=== PATIENT | female | born 1980 | race African-American/Black ===

== ENCOUNTER 2016-11-18 10:45 | Inpatient (IN) | payer MEDICARE, MEDICAID ==
[~2016-11-18] VITALS: Ht 157.5 cm; Wt 147.0 kg
[~2016-11-18 10:45] MED LIST: ACET-2178 PO; AMLO10TA4 PO; LISI-604 PO
[2016-11-18] MEDS ORDERED: CLONIDINE 0.1MG TABLET PO ONE ×2 (16:30→18:45)
[2016-11-18] MEDS ORDERED: HYDRALAZINE 20MG/ML VIAL IV ONE (20:15)
[2016-11-18 20:58] LABS: EOSINOPHILS % 0.9 % (0.0-5.0); HEMATOCRIT. 44.4 % (36.0-48.0); HEMOGLOBIN. 14.7 g/dL (12.0-16.0); LYMPHOCYTES % 25.1 % (20.0-50.0); MEAN CORPUSCULAR HEMOGLOBIN 30.4 pg (28.0-32.0); MEAN CORPUSCULAR VOLUME 91.5 fL (81.0-99.0); MEAN PLATELET VOLUME 9.1 fl (7.4-10.4); PLATELET 280 x1000/uL (130-400); RED BLOOD CELL COUNT 4.85 mill/uL (4.2-5.4); RED CELL DISTRIBUTION WIDTH 14.6 % (11.6-14.6)
[2016-11-18 21:02] LABS: INR 1.1; PROTHROMBIN TIME 11.1 sec (9.4-11.6)
[2016-11-18 21:10] LABS: CARBON DIOXIDE 26 mEq/L (21-32); CHLORIDE 105 mEq/L (98-107)
[2016-11-18 21:20] LABS: HCG SCREEN NEGATIVE
[2016-11-19] VITALS (12 sets, daily range): BP systolic 112–183; BP diastolic 63–112
[2016-11-19] MEDS ORDERED: ACETAMINOPHEN 325MG TABLET PO PRN (01:00)
[2016-11-19] MEDS ORDERED: ZOLPIDEM TARTRATE 5MG TABLET PO PRN (01:00)
[2016-11-19] MEDS ORDERED: MAGNESIUM/ALUMINUM HYDROXIDE/SIMETHICONE 30ML UDC PO PRN (01:00)
[2016-11-19] MEDS: METOPROLOL TARTRATE 50MG TABLET PO SCH ×3 (01:33→14:24)
[2016-11-19] MEDS: AMLODIPINE 5MG TABLET PO SCH ×3 (01:34→14:25)
[2016-11-19] MEDS: LOSARTAN POTASSIUM 100 MG TABLET PO SCH ×3 (01:34→14:25)
[2016-11-19] MEDS: CLONIDINE 0.1MG TABLET PO PRN ×2 (05:37→17:05)
[2016-11-19 06:23] LABS: CARBON DIOXIDE 28 mEq/L (21-32); CHLORIDE 105 mEq/L (98-107); HDL CHOLESTEROL 34 mg/dL (40-59); LDL CHOLESTEROL 96 mg/dL (5-100)
[2016-11-19 08:35] LABS: TROPONIN I < 0.02 ng/mL (0.00-0.04)
[2016-11-19] MEDS ORDERED: ENOXAPARIN 40MG/0.4ML SYR SUBCUT SCH (09:00)
[2016-11-19] MEDS: ENOXAPARIN 40MG/0.4ML SYR SUBCUT SCH ×2 (09:33→20:58)
[2016-11-19] MEDS ORDERED: CLONIDINE 0.1MG TABLET PO PRN (19:15)
[2016-11-19] MEDS ORDERED: AMLODIPINE 5MG TABLET PO SCH (20:00)
[2016-11-19] MEDS ORDERED: METOPROLOL TARTRATE 50MG TABLET PO SCH (20:00)
[2016-11-20] VITALS: BP 128/68
[2016-11-20 04:00] VITALS: BP 111/68
[2016-11-20 08:00] VITALS: BP 152/129
[2016-11-20] MEDS: ENOXAPARIN 40MG/0.4ML SYR SUBCUT SCH (08:27)
[2016-11-20] MEDS ORDERED: METOPROLOL TARTRATE 25MG TABLET PO SCH (09:00)
[2016-11-20] MEDS ORDERED: LOSARTAN POTASSIUM 100 MG TABLET PO SCH (09:00)
[2016-11-20] MEDS ORDERED: AMLODIPINE 5MG TABLET PO SCH (09:00)
[2016-11-20 10:00] VITALS: BP 136/84
[2016-11-20 12:00] VITALS: BP 136/84
[2016-11-20 13:16] VITALS: BP 136/84
== END 2016-11-20 14:31 | disposition home or self-care (01) | DRG 305 ==
LOC: ER 14:09 → 7WST 21:43 → ENRESERV 22:14
PROVIDERS: ADMIT Internal Medicine; ATTEND Internal Medicine
DX: I10 Essential (primary) hypertension (principal); Z68.43 Body mass index [BMI] 50.0-59.9, adult; E66.01 Morbid (severe) obesity due to excess calories; E78.5 Hyperlipidemia, unspecified; F17.200 Nicotine dependence, unspecified, uncomplicated; Z79.899 Other long term (current) drug therapy; Z71.6 Tobacco abuse counseling; M19.90 Unspecified osteoarthritis, unspecified site
CPT/HCPCS: 36415; 80048; 80053; 80061; 84484; 84703; 85025; 85610; 93005; 93880; 93923; 96374; 99285; J0360; J1650

== ENCOUNTER 2018-03-03 22:30 | Emergency (ER) | payer MEDICARE, MEDICAID ==
[~2018-03-03] VITALS: Ht 157.5 cm; Wt 141.0 kg
[2018-03-04] MEDS ORDERED: ACETAMINOPHEN 325MG TABLET PO STA (02:11)
[2018-03-04 02:46] LABS: BASOPHILS % 0.6 % (0.0-2.0); EOSINOPHILS % 1.7 % (0.0-5.0); HEMATOCRIT. 47.1 % (36.0-48.0); HEMOGLOBIN. 15.4 g/dL (12.0-16.0); LYMPHOCYTES % 19.5 % (20.0-50.0); MEAN CORPUSCULAR HEMOGLOBIN 30.4 pg (28.0-32.0); MEAN PLATELET VOLUME 9.1 fl (7.4-10.4); MONOCYTES % 7.9 % (2.0-8.0); NEUTROPHILS % 70.3 % (40.0-76.0); PLATELET 314 x1000/uL (130-400); RED BLOOD CELL COUNT 5.06 mill/uL (4.2-5.4); RED CELL DISTRIBUTION WIDTH 14.3 % (11.6-14.6)
[2018-03-04 02:53] LABS: CHLORIDE 107 mEq/L (98-107)
[2018-03-04] MEDS ORDERED: METOPROLOL TARTRATE 50MG TABLET PO ONE (03:15)
[2018-03-04] MEDS ORDERED: HYDRALAZINE 20MG/ML VIAL IV ONE (04:45)
[2018-03-04 04:46] LABS: CLARITY URINE CLEAR (CLEAR); COLOR URINE YELLOW (YELLOW); KETONES URINE NEGATIVE (NEGATIVE); LEUKOCYTE ESTERASE URINE TRACE (NEGATIVE); NITRITE URINE NEGATIVE (NEGATIVE); OCCULT BLOOD URINE NEGATIVE (NEGATIVE); PH URINE 6.5 (4.5-8.0); PROTEIN URINE NEGATIVE (NEGATIVE); SPECIFIC GRAVITY URINE 1.023 (1.005-1.030)
[2018-03-04] MEDS ORDERED: NITROFURANTOIN 100MG M/M CAPSULE PO ONE (05:30)
[2018-03-04] MEDS ORDERED: ALBUTEROL (0.083%) 2.5MG/3ML NEB HHN ONE (06:00)
[2018-03-04 07:16] VITALS: BP 165/89
== END 2018-03-04 09:53 | disposition home or self-care (01) ==
LOC: ER 03-04 09:45
DX: J06.9 Acute upper respiratory infection, unspecified (principal); N39.0 Urinary tract infection, site not specified; I10 Essential (primary) hypertension; F12.90 Cannabis use, unspecified, uncomplicated; F17.210 Nicotine dependence, cigarettes, uncomplicated
CPT/HCPCS: 36415; 71045; 80053; 81003; 81025; 83880; 84484; 85025; 93005; 94640; 96374; 99284; J0360; J7611

== ENCOUNTER 2018-07-05 15:05 | Emergency (ER) | payer MEDICARE, MEDICAID ==
[~2018-07-05] VITALS: Ht 157.5 cm; Wt 145.0 kg
[2018-07-05] MEDS ORDERED: FUROSEMIDE 20MG/2ML VIAL IVP ONE (15:30)
[2018-07-05 16:29] LABS: BASOPHILS % 0.8 % (0.0-2.0); EOSINOPHILS % 1.2 % (0.0-5.0); HEMATOCRIT. 47.5 % (36.0-48.0); HEMOGLOBIN. 15.6 g/dL (12.0-16.0); LYMPHOCYTES % 16.8 % (20.0-50.0); MEAN CORPUSCULAR HEMOGLOBIN 29.9 pg (28.0-32.0); MEAN CORPUSCULAR VOLUME 91.4 fL (81.0-99.0); MEAN PLATELET VOLUME 9.1 fl (7.4-10.4); MONOCYTES % 6.9 % (2.0-8.0); NEUTROPHILS % 74.3 % (40.0-76.0); PLATELET 289 x1000/uL (130-400); RED CELL DISTRIBUTION WIDTH 15.1 % (11.6-14.6)
[2018-07-05 16:36] LABS: CHLORIDE 106 mEq/L (98-107)
[2018-07-05 16:38] LABS: PARTIAL THROMBOPLASTIN TIME 29.4 sec (23.4-31.0); PROTHROMBIN TIME 10.6 sec (9.6-11.0)
[2018-07-05 16:43] LABS: ETHANOL BLOOD < 10 mg/dL
[2018-07-05 16:46] LABS: CREATINE KINASE 183 IU/L (26-192); HCG SCREEN NEGATIVE
[2018-07-05 16:49] LABS: CREATINE KINASE MB FRACTION 1.6 ng/mL (0.5-3.6)
[2018-07-05 17:06] LABS: *AMPHETAMINES SCREEN URINE NEGATIVE (NEGATIVE); *BARBITURATES SCREEN URINE NEGATIVE (NEGATIVE); *BENZODIAZEPINES SCREEN URINE NEGATIVE (NEGATIVE); *COCAINE SCREEN URINE NEGATIVE (NEGATIVE); METHADONE URINE SCREEN NEGATIVE (NEGATIVE); OPIATES URINE SCREEN NEGATIVE (NEGATIVE)
[2018-07-05 17:07] LABS: PHENCYCLIDINE URINE SCREEN NEGATIVE (NEGATIVE)
[2018-07-05 17:14] LABS: CANNABINOID URINE SCREEN PRESUMTIVE POSITIVE (NEGATIVE)
[2018-07-05 18:52] VITALS: BP 186/118
== END 2018-07-05 19:00 | disposition home or self-care (01) ==
LOC: ER 15:05 → CANBEDREQ 20:04
DX: R60.0 Localized edema (principal); F12.10 Cannabis abuse, uncomplicated; E66.01 Morbid (severe) obesity due to excess calories; M79.89 Other specified soft tissue disorders; J45.909 Unspecified asthma, uncomplicated; I10 Essential (primary) hypertension; Z68.43 Body mass index [BMI] 50.0-59.9, adult
CPT/HCPCS: 36415; 71045; 80053; 80305; 80320; 82550; 82553; 83735; 83880; 84484; 84703; 85025; 85610; 85730; 93005; 93970; 96374; 99284; J1940; G0480

== ENCOUNTER 2019-08-07 11:06 | Emergency (ER) | payer MEDICARE, MEDICAID ==
[~2019-08-07] VITALS: Ht 157.5 cm; Wt 143.0 kg
[2019-08-07 17:37] LABS: BASOPHILS % 1.3 % (0.0-2.0); EOSINOPHILS % 0.8 % (0.0-5.0); HEMATOCRIT. 46.8 % (36.0-48.0); HEMOGLOBIN. 15.5 g/dL (12.0-16.0); LYMPHOCYTES % 20.2 % (20.0-50.0); MEAN CORPUSCULAR HEMOGLOBIN 29.2 pg (28.0-32.0); MEAN PLATELET VOLUME 9.2 fl (7.4-10.4); MONOCYTES % 5.7 % (2.0-8.0); PLATELET 361 x1000/uL (130-400); RED BLOOD CELL COUNT 5.32 mill/uL (4.2-5.4); RED CELL DISTRIBUTION WIDTH 15.4 % (11.6-14.6)
[2019-08-07 17:44] LABS: CHLORIDE 105 mEq/L (98-107)
[2019-08-07 17:47] LABS: HCG SCREEN NEGATIVE
[2019-08-07 17:50] LABS: ETHANOL BLOOD < 10 mg/dL
[2019-08-07] MEDS ORDERED: FUROSEMIDE 20MG/2ML VIAL IVP ONE (18:00)
[2019-08-07 19:26] LABS: CLARITY URINE CLEAR (CLEAR); COLOR URINE YELLOW (YELLOW); KETONES URINE NEGATIVE (NEGATIVE); LEUKOCYTE ESTERASE URINE TRACE (NEGATIVE); NITRITE URINE NEGATIVE (NEGATIVE); OCCULT BLOOD URINE NEGATIVE (NEGATIVE); PROTEIN URINE NEGATIVE (NEGATIVE); SPECIFIC GRAVITY URINE 1.021 (1.005-1.030)
[2019-08-07 19:52] LABS: *AMPHETAMINES SCREEN URINE NEGATIVE (NEGATIVE); *BARBITURATES SCREEN URINE NEGATIVE (NEGATIVE); *BENZODIAZEPINES SCREEN URINE NEGATIVE (NEGATIVE); *COCAINE SCREEN URINE NEGATIVE (NEGATIVE); METHADONE URINE SCREEN NEGATIVE (NEGATIVE)
[2019-08-07 19:53] LABS: OPIATES URINE SCREEN NEGATIVE (NEGATIVE); PHENCYCLIDINE URINE SCREEN NEGATIVE (NEGATIVE)
[2019-08-07 20:00] LABS: CANNABINOID URINE SCREEN PRESUMTIVE POSITIVE (NEGATIVE)
[2019-08-07 21:00] VITALS: BP 122/74
== END 2019-08-07 21:10 | disposition home or self-care (01) ==
LOC: EDUNIT# 11:06 → ER 11:06
DX: G62.9 Polyneuropathy, unspecified (principal); I10 Essential (primary) hypertension; F19.10 Other psychoactive substance abuse, uncomplicated; Z79.899 Other long term (current) drug therapy
CPT/HCPCS: 36415; 71045; 80053; 80305; 80320; 81003; 83690; 83880; 84484; 84703; 85025; 93005; 93970; 96374; 99285; J1940; G0480

== ENCOUNTER 2020-06-14 21:48 | Inpatient (IN) | payer MEDICARE, MEDICAID ==
[~2020-06-14] VITALS: Ht 157.5 cm; Wt 140.6 kg
[2020-06-14 23:24] LABS: BASOPHILS % 1.1 % (0.0-2.0); HEMATOCRIT. 37.7 % (36.0-48.0); HEMOGLOBIN. 12.9 g/dL (12.0-16.0); LYMPHOCYTES % 20.8 % (20.0-50.0); MEAN CORPUSCULAR HEMOGLOBIN 30.6 pg (28.0-32.0); MEAN CORPUSCULAR VOLUME 89.4 fL (81.0-99.0); MEAN PLATELET VOLUME 8.5 fl (7.4-10.4); MONOCYTES % 6.5 % (2.0-8.0); NEUTROPHILS % 70.6 % (40.0-76.0); PLATELET 304 x1000/uL (130-400); RED BLOOD CELL COUNT 4.22 mill/uL (4.2-5.4); RED CELL DISTRIBUTION WIDTH 14.5 % (11.6-14.6)
[2020-06-14 23:30] LABS: CHLORIDE 108 mEq/L (98-107)
[2020-06-15 00:01] LABS: PROTHROMBIN TIME 10.6 sec (9.6-11.0)
[2020-06-15 00:08] LABS: HCG SCREEN NEGATIVE
[2020-06-15] MEDS ORDERED: IOHEXOL-300 100 ML BOTTLE ONE (01:34)
[2020-06-15] MEDS: MORPHINE SULFATE 2 MG/ML CPJ (NOT FOR IM USE) IV PRN ×2 (04:55→21:30)
[2020-06-15 09:10] VITALS: BP 142/88
[2020-06-15 09:15] VITALS: BP 142/88
[2020-06-15] MEDS ORDERED: ONDANSETRON HCL 4MG/2ML INJ IV PRN (09:15)
[2020-06-15] MEDS ORDERED: ACETAMINOPHEN 650MG/20.3ML UDC GT PRN (09:15)
[2020-06-15] MEDS: ENOXAPARIN 40MG/0.4ML SYR SUBCUT SCH ×2 (10:42→21:29)
[2020-06-15] MEDS ORDERED: FURO40TA5 MT (11:02)
[2020-06-15] MEDS ORDERED: AMLODIPINE (11:03)
[2020-06-15] MEDS ORDERED: METOPROLOL (11:03)
[2020-06-15 12:00] VITALS: BP 152/76
[2020-06-15] MEDS: SODIUM CHLORIDE 0.45% 1,000 ML IV SCH ×2 (12:03→21:43)
[2020-06-15 16:00] VITALS: BP 140/62
[2020-06-15 20:00] VITALS: BP 156/98
[2020-06-15 21:18] LABS: BASOPHILS % 0.4 % (0.0-2.0); EOSINOPHILS % 0.9 % (0.0-5.0); HEMATOCRIT. 37.5 % (36.0-48.0); HEMOGLOBIN. 12.6 g/dL (12.0-16.0); LYMPHOCYTES % 24.1 % (20.0-50.0); MEAN CORPUSCULAR HEMOGLOBIN 30.2 pg (28.0-32.0); MEAN CORPUSCULAR VOLUME 89.7 fL (81.0-99.0); MEAN PLATELET VOLUME 9.1 fl (7.4-10.4); MONOCYTES % 7.4 % (2.0-8.0); NEUTROPHILS % 67.2 % (40.0-76.0); PLATELET 292 x1000/uL (130-400); RED BLOOD CELL COUNT 4.17 mill/uL (4.2-5.4); RED CELL DISTRIBUTION WIDTH 14.3 % (11.6-14.6)
[2020-06-15 21:31] LABS: CHLORIDE 108 mEq/L (98-107)
[2020-06-15] MEDS ORDERED: CLONIDINE 0.1MG TABLET PO PRN (22:45)
[2020-06-15] MEDS: METOPROLOL TARTRATE 50MG TABLET PO SCH (23:19)
[2020-06-16] VITALS: BP 145/91
[2020-06-16] MEDS: MORPHINE SULFATE 2 MG/ML CPJ (NOT FOR IM USE) IV PRN (01:45)
[2020-06-16 04:00] VITALS: BP 120/76
[2020-06-16 05:39] LABS: CHLORIDE 108 mEq/L (98-107)
[2020-06-16 05:52] LABS: LDL CHOLESTEROL 111 mg/dL (5-100)
[2020-06-16 05:53] LABS: HDL CHOLESTEROL 38 mg/dL (40-59)
[2020-06-16 06:13] LABS: BASOPHILS % 0.8 % (0.0-2.0); EOSINOPHILS % 1.5 % (0.0-5.0); HEMATOCRIT. 38.5 % (36.0-48.0); HEMOGLOBIN. 12.7 g/dL (12.0-16.0); LYMPHOCYTES % 27.1 % (20.0-50.0); MEAN CORPUSCULAR HEMOGLOBIN 29.9 pg (28.0-32.0); MEAN CORPUSCULAR VOLUME 90.5 fL (81.0-99.0); MEAN PLATELET VOLUME 9.3 fl (7.4-10.4); MONOCYTES % 6.5 % (2.0-8.0); NEUTROPHILS % 64.1 % (40.0-76.0); PLATELET 284 x1000/uL (130-400); RED BLOOD CELL COUNT 4.25 mill/uL (4.2-5.4); RED CELL DISTRIBUTION WIDTH 14.2 % (11.6-14.6)
[2020-06-16 08:00] VITALS: BP 153/89
[2020-06-16] MEDS: FUROSEMIDE 40MG TABLET PO SCH (09:43)
[2020-06-16] MEDS: METOPROLOL TARTRATE 50MG TABLET PO SCH ×2 (09:43→21:15)
[2020-06-16] MEDS: ENOXAPARIN 40MG/0.4ML SYR SUBCUT SCH ×2 (09:44→21:14)
[2020-06-16 12:00] VITALS: BP 136/83
[2020-06-16] MEDS: SODIUM CHLORIDE 0.45% 1,000 ML IV SCH (12:43)
[2020-06-16 16:00] VITALS: BP 150/90
[2020-06-16] MEDS: HYDROCODONE/APAP 7.5/325MG 1 TAB TABLET PO PRN ×2 (18:27→21:01)
[2020-06-16 20:00] VITALS: BP 146/83
[2020-06-16] MEDS: DICLOFENAC SODIUM 75MG DR (EC) TABLET PO SCH (22:53)
[2020-06-17] VITALS: BP 143/86
[2020-06-17] MEDS: ACETAMINOPHEN 325MG TABLET PO PRN (01:47)
[2020-06-17] MEDS: SODIUM CHLORIDE 0.45% 1,000 ML IV SCH (01:48)
[2020-06-17 04:00] VITALS: BP 149/83
[2020-06-17 08:00] VITALS: BP 161/83
[2020-06-17] MEDS: DICLOFENAC SODIUM 75MG DR (EC) TABLET PO SCH ×2 (09:39→20:46)
[2020-06-17] MEDS: METOPROLOL TARTRATE 50MG TABLET PO SCH ×2 (09:40→20:49)
[2020-06-17] MEDS: FUROSEMIDE 40MG TABLET PO SCH (09:40)
[2020-06-17] MEDS: ENOXAPARIN 40MG/0.4ML SYR SUBCUT SCH ×2 (09:40→20:51)
[2020-06-17 12:00] VITALS: BP 148/86
[2020-06-17 16:00] VITALS: BP 160/87
[2020-06-17 20:00] VITALS: BP 151/84
[2020-06-17] MEDS: MORPHINE SULFATE 2 MG/ML CPJ (NOT FOR IM USE) IV PRN (20:51)
[2020-06-18] VITALS: BP 133/68
[2020-06-18] MEDS: ACETAMINOPHEN 325MG TABLET PO PRN ×2 (02:44→08:34)
[2020-06-18] MEDS: SODIUM CHLORIDE 0.45% 1,000 ML IV SCH ×2 (03:55→17:15)
[2020-06-18 04:00] VITALS: BP 156/90
[2020-06-18 08:00] VITALS: BP 122/61
[2020-06-18] MEDS: DICLOFENAC SODIUM 75MG DR (EC) TABLET PO SCH ×2 (08:33→20:34)
[2020-06-18] MEDS: FUROSEMIDE 40MG TABLET PO SCH (08:33)
[2020-06-18] MEDS: METOPROLOL TARTRATE 50MG TABLET PO SCH ×2 (08:33→20:34)
[2020-06-18] MEDS: ENOXAPARIN 40MG/0.4ML SYR SUBCUT SCH ×2 (08:37→20:33)
[2020-06-18 13:40] VITALS: BP 122/61
[2020-06-18] MEDS: HYDROCODONE/APAP 7.5/325MG 1 TAB TABLET PO PRN ×2 (16:54→21:26)
[2020-06-18 20:00] VITALS: BP 135/77
[2020-06-18 21:26] VITALS: BP 135/77
[2020-06-19 08:07] LABS: ANA IFA Negative (.)
== END 2020-06-18 21:35 | DRG 558 ==
LOC: ER 21:48 → 6EST 06-15 04:09 → ENRESERV 06-15 07:20 → 6EST 06-18 04:34
PROVIDERS: ADMIT Family Medicine; ATTEND Family Medicine
PROC: 3E0U33Z Introduction of Anti-inflammatory into Joints, Percutaneous Approach (ICD-10-PCS; principal; 2020-06-16)
PROC: 3E0U33Z Introduction of Anti-inflammatory into Joints, Percutaneous Approach (ICD-10-PCS; 2020-06-16)
PROC: 3E0U3BZ Introduction of Anesthetic Agent into Joints, Percutaneous Approach (ICD-10-PCS; 2020-06-16)
PROC: 3E0U3BZ Introduction of Anesthetic Agent into Joints, Percutaneous Approach (ICD-10-PCS; 2020-06-16)
DX: M70.71 Other bursitis of hip, right hip (principal); E44.1 Mild protein-calorie malnutrition; Z68.43 Body mass index [BMI] 50.0-59.9, adult; M16.11 Unilateral primary osteoarthritis, right hip; I10 Essential (primary) hypertension; D72.829 Elevated white blood cell count, unspecified; E66.01 Morbid (severe) obesity due to excess calories; M17.11 Unilateral primary osteoarthritis, right knee; Z20.822 Contact with and (suspected) exposure to COVID-19; M25.851 Other specified joint disorders, right hip
CPT/HCPCS: 36415; 72100; 72193; 73502; 73562; 80053; 80061; 83735; 83880; 84484; 84550; 84703; 85025; 85651; 86140; 86256; 86431; 87426; 93005; 93971; 97162; 97166; 99285; C1893; J1650; J2270; Q9967

== ENCOUNTER 2020-06-18 21:38 | Inpatient (IN) | payer MEDICARE, MEDICAID ==
[~2020-06-18] VITALS: Ht 157.5 cm; Wt 140.6 kg
[2020-06-18 21:38] VITALS: BP 106/65
[~2020-06-18 21:38] MED LIST changes: -ACET-2178 PO; -AMLO10TA4 PO; +AMLODIPINE; +FURO40TA5 MT; -LISI-604 PO; +METOPROLOL
[2020-06-18 21:40] VITALS: BP 106/65
[2020-06-18] MEDS ORDERED: ACETAMINOPHEN 650MG/20.3ML UDC PO PRN (22:15)
[2020-06-18] MEDS ORDERED: CLONIDINE 0.1MG TABLET PO PRN (22:15)
[2020-06-18] MEDS ORDERED: ACETAMINOPHEN 325MG TABLET PO PRN (22:15)
[2020-06-19 07:54] VITALS: BP 114/68
[2020-06-19] MEDS: DICLOFENAC SODIUM 75MG DR (EC) TABLET PO SCH ×2 (08:27→21:32)
[2020-06-19] MEDS: FUROSEMIDE 40MG TABLET PO SCH (08:28)
[2020-06-19] MEDS: METOPROLOL TARTRATE 50MG TABLET PO SCH ×3 (08:29→21:31)
[2020-06-19] MEDS: ENOXAPARIN 40MG/0.4ML SYR SUBCUT SCH ×2 (08:29→21:33)
[2020-06-19] MEDS ORDERED: BISACODYL 5MG TABLET PO PRN (11:00)
[2020-06-19] MEDS ORDERED: DIPHENHYDRAMINE 25MG CAPSULE PO PRN (11:15)
[2020-06-19] MEDS ORDERED: NA PHOS,M-B/NA PHOS,DI-BA ENEMA 118ML PR PRN (13:45)
[2020-06-19] MEDS: DOCUSATE SODIUM 100MG CAPSULE PO SCH ×2 (13:45→17:48)
[2020-06-19] MEDS: DIPHENHYDRAMINE HCL/ZINC ACET 28 GM CREAM TOP PRN (17:48)
[2020-06-19 20:00] VITALS: BP 145/92
[2020-06-20 08:00] VITALS: BP 134/65
[2020-06-20] MEDS: DOCUSATE SODIUM 100MG CAPSULE PO SCH ×2 (08:51→16:13)
[2020-06-20] MEDS: METOPROLOL TARTRATE 50MG TABLET PO SCH ×2 (08:52→21:18)
[2020-06-20] MEDS: ENOXAPARIN 40MG/0.4ML SYR SUBCUT SCH ×2 (08:53→21:18)
[2020-06-20] MEDS: DICLOFENAC SODIUM 75MG DR (EC) TABLET PO SCH ×2 (08:53→21:17)
[2020-06-20] MEDS: FUROSEMIDE 40MG TABLET PO SCH (08:53)
[2020-06-20] MEDS: HYDROCODONE/APAP 7.5/325MG 1 TAB TABLET PO PRN (21:25)
[2020-06-20 21:28] VITALS: BP 124/97
[2020-06-21 08:06] VITALS: BP 108/54
[2020-06-21] MEDS: DICLOFENAC SODIUM 75MG DR (EC) TABLET PO SCH ×2 (08:26→20:22)
[2020-06-21] MEDS: FUROSEMIDE 40MG TABLET PO SCH (08:26)
[2020-06-21] MEDS: DOCUSATE SODIUM 100MG CAPSULE PO SCH ×3 (08:26→16:21)
[2020-06-21] MEDS: ENOXAPARIN 40MG/0.4ML SYR SUBCUT SCH ×2 (08:26→20:23)
[2020-06-21] MEDS: METOPROLOL TARTRATE 50MG TABLET PO SCH ×2 (08:30→20:24)
[2020-06-21 20:00] VITALS: BP 126/75
[2020-06-22 07:53] VITALS: BP 129/71
[2020-06-22] MEDS: DOCUSATE SODIUM 100MG CAPSULE PO SCH ×3 (08:51→17:00)
[2020-06-22] MEDS: ENOXAPARIN 40MG/0.4ML SYR SUBCUT SCH ×2 (08:51→20:50)
[2020-06-22] MEDS: FUROSEMIDE 40MG TABLET PO SCH (08:51)
[2020-06-22] MEDS: DICLOFENAC SODIUM 75MG DR (EC) TABLET PO SCH ×2 (08:51→20:49)
[2020-06-22] MEDS: METOPROLOL TARTRATE 50MG TABLET PO SCH ×2 (08:52→20:49)
[2020-06-22 20:00] VITALS: BP 129/78
[2020-06-22] MEDS: HYDROCODONE/APAP 7.5/325MG 1 TAB TABLET PO PRN (22:48)
[2020-06-23] MEDS: FUROSEMIDE 40MG TABLET PO SCH (09:04)
[2020-06-23] MEDS: METOPROLOL TARTRATE 50MG TABLET PO SCH ×2 (09:04→21:39)
[2020-06-23] MEDS: DICLOFENAC SODIUM 75MG DR (EC) TABLET PO SCH ×2 (09:04→21:34)
[2020-06-23] MEDS: ENOXAPARIN 40MG/0.4ML SYR SUBCUT SCH ×2 (09:05→21:35)
[2020-06-23] MEDS: DOCUSATE SODIUM 100MG CAPSULE PO SCH ×2 (09:09→17:00)
[2020-06-23 20:00] VITALS: BP 106/66
[2020-06-23] MEDS ORDERED: HYDROCODONE/APAP 7.5/325MG 1 TAB TABLET PO PRN (23:45)
[2020-06-24 06:47] LABS: BASOPHILS % 0.4 % (0.0-2.0); EOSINOPHILS % 1.9 % (0.0-5.0); HEMOGLOBIN. 12.3 g/dL (12.0-16.0); LYMPHOCYTES % 27.7 % (20.0-50.0); MEAN CORPUSCULAR HEMOGLOBIN 30.3 pg (28.0-32.0); MEAN PLATELET VOLUME 9.3 fl (7.4-10.4); MONOCYTES % 8.2 % (2.0-8.0); NEUTROPHILS % 61.8 % (40.0-76.0); PLATELET 312 x1000/uL (130-400); RED BLOOD CELL COUNT 4.06 mill/uL (4.2-5.4); RED CELL DISTRIBUTION WIDTH 14.3 % (11.6-14.6)
[2020-06-24 06:53] LABS: CHLORIDE 108 mEq/L (98-107)
[2020-06-24 08:07] VITALS: BP 122/57
[2020-06-24] MEDS: DOCUSATE SODIUM 100MG CAPSULE PO SCH ×2 (09:00→17:00)
[2020-06-24] MEDS: FUROSEMIDE 40MG TABLET PO SCH (09:13)
[2020-06-24] MEDS: METOPROLOL TARTRATE 50MG TABLET PO SCH ×2 (09:13→21:39)
[2020-06-24] MEDS: DICLOFENAC SODIUM 75MG DR (EC) TABLET PO SCH ×2 (09:14→21:40)
[2020-06-24] MEDS: ENOXAPARIN 40MG/0.4ML SYR SUBCUT SCH ×2 (09:15→21:41)
[2020-06-24 20:00] VITALS: BP 105/70
[2020-06-24] MEDS: HYDROCODONE/APAP 7.5/325MG 1 TAB TABLET PO PRN (21:40)
[2020-06-24] MEDS: DIPHENHYDRAMINE HCL/ZINC ACET 28 GM CREAM TOP PRN (23:55)
[2020-06-25 07:41] VITALS: BP 150/62
[2020-06-25] MEDS: DOCUSATE SODIUM 100MG CAPSULE PO SCH ×2 (09:00→17:00)
[2020-06-25] MEDS: DICLOFENAC SODIUM 75MG DR (EC) TABLET PO SCH ×2 (09:05→21:03)
[2020-06-25] MEDS: FUROSEMIDE 40MG TABLET PO SCH (09:05)
[2020-06-25] MEDS: METOPROLOL TARTRATE 50MG TABLET PO SCH ×2 (09:06→21:03)
[2020-06-25] MEDS: ENOXAPARIN 40MG/0.4ML SYR SUBCUT SCH ×2 (09:06→21:03)
[2020-06-25 20:00] VITALS: BP 117/61
[2020-06-25] MEDS: HYDROCODONE/APAP 7.5/325MG 1 TAB TABLET PO PRN (23:47)
[2020-06-26 08:12] VITALS: BP 125/50
[2020-06-26] MEDS: DOCUSATE SODIUM 100MG CAPSULE PO SCH ×2 (08:44→16:23)
[2020-06-26] MEDS: ENOXAPARIN 40MG/0.4ML SYR SUBCUT SCH ×2 (08:44→21:20)
[2020-06-26] MEDS: FUROSEMIDE 40MG TABLET PO SCH (08:44)
[2020-06-26] MEDS: DICLOFENAC SODIUM 75MG DR (EC) TABLET PO SCH ×2 (08:44→21:20)
[2020-06-26] MEDS: METOPROLOL TARTRATE 50MG TABLET PO SCH ×2 (08:46→21:20)
[2020-06-26 20:00] VITALS: BP 144/81
[2020-06-26] MEDS: HYDROCODONE/APAP 7.5/325MG 1 TAB TABLET PO PRN (21:29)
[2020-06-27] MEDS: HYDROCODONE/APAP 7.5/325MG 1 TAB TABLET PO PRN (02:32)
[2020-06-27 07:46] VITALS: BP 136/70
[2020-06-27 08:00] VITALS: BP 121/68
[2020-06-27] MEDS: METOPROLOL TARTRATE 50MG TABLET PO SCH ×2 (08:35→08:36)
[2020-06-27] MEDS: ENOXAPARIN 40MG/0.4ML SYR SUBCUT SCH (08:35)
[2020-06-27] MEDS: FUROSEMIDE 40MG TABLET PO SCH (08:35)
[2020-06-27] MEDS: DOCUSATE SODIUM 100MG CAPSULE PO SCH (08:35)
[2020-06-27] MEDS: DICLOFENAC SODIUM 75MG DR (EC) TABLET PO SCH (08:36)
[2020-06-27 12:25] VITALS: BP 125/66
== END 2020-06-27 14:25 | disposition home health service (06) | DRG 554 ==
PROVIDERS: ADMIT Psychiatry & Neurology Neurology; ATTEND Family Medicine
DX: M16.11 Unilateral primary osteoarthritis, right hip (principal); E44.1 Mild protein-calorie malnutrition; Z68.43 Body mass index [BMI] 50.0-59.9, adult; E66.01 Morbid (severe) obesity due to excess calories; I10 Essential (primary) hypertension; M70.71 Other bursitis of hip, right hip; R26.89 Other abnormalities of gait and mobility; D72.829 Elevated white blood cell count, unspecified; H50.10 Unspecified exotropia; M17.0 Bilateral primary osteoarthritis of knee; M47.816 Spondylosis without myelopathy or radiculopathy, lumbar region; F17.210 Nicotine dependence, cigarettes, uncomplicated; F39 Unspecified mood [affective] disorder; Z91.81 History of falling
CPT/HCPCS: 36415; 80048; 85025; 93970; 97110; 97116; 97162; 97166; 97530; 97535; J1650

== ENCOUNTER 2021-02-12 21:47 | Inpatient (IN) | payer MEDICARE, MEDICAID ==
[~2021-02-12] VITALS: Ht 152.4 cm; Wt 127.0 kg
[2021-02-12] MEDS ORDERED: KETOROLAC 60MG/2ML VIAL IM ONE (23:45)
[2021-02-13 04:39] LABS: BASOPHILS % 0.5 % (0.0-2.0); EOSINOPHILS % 1.2 % (0.0-5.0); HEMATOCRIT. 46.1 % (36.0-48.0); HEMOGLOBIN. 15.2 g/dL (12.0-16.0); LYMPHOCYTES % 24.1 % (20.0-50.0); MEAN CORPUSCULAR HEMOGLOBIN 29.8 pg (28.0-32.0); MEAN CORPUSCULAR VOLUME 90.1 fL (81.0-99.0); MEAN PLATELET VOLUME 9.4 fl (7.4-10.4); MONOCYTES % 6.2 % (2.0-8.0); PLATELET 315 x1000/uL (130-400); RED BLOOD CELL COUNT 5.12 mill/uL (4.2-5.4); RED CELL DISTRIBUTION WIDTH 15.1 % (11.6-14.6)
[2021-02-13 05:18] LABS: CHLORIDE 106 mEq/L (98-107)
[2021-02-13] MEDS ORDERED: ONDANSETRON HCL 4MG/2ML INJ IV STA (06:23)
[2021-02-13] MEDS ORDERED: MORPHINE SULFATE 4 MG/ML CPJ (NOT FOR IM USE) IV STA (06:23)
[2021-02-13] MEDS ORDERED: TRAMADOL 50MG TABLET PO PRN (07:45)
[2021-02-13] MEDS ORDERED: ZOLPIDEM TARTRATE 5MG TABLET PO PRN (07:45)
[2021-02-13 08:30] VITALS: BP 159/90
[2021-02-13] MEDS ORDERED: CLONIDINE 0.1MG TABLET PO PRN (09:30)
[2021-02-13] MEDS ORDERED: DOCUSATE SODIUM 100MG CAPSULE PO PRN (09:30)
[2021-02-13] MEDS ORDERED: GUAIFENESIN 200MG/10ML SUGAR FREE UDC PO PRN (09:30)
[2021-02-13] MEDS ORDERED: ACETAMINOPHEN 325MG TABLET PO PRN ×2 (09:30)
[2021-02-13] MEDS ORDERED: IPRATROPIUM/ALBUTEROL 0.5-3(2.5)MG/3ML NEB NEB PRN (09:30)
[2021-02-13] MEDS ORDERED: ONDANSETRON HCL 4MG/2ML INJ IV PRN (09:30)
[2021-02-13] MEDS ORDERED: MAGNESIUM/ALUMINUM HYDROXIDE/SIMETHICONE 30ML UDC PO PRN (09:30)
[2021-02-13] MEDS: KETOROLAC 30MG/ML VIAL IV PRN (10:21)
[2021-02-13] MEDS: FAMOTIDINE 20MG TABLET PO SCH ×2 (10:26→22:15)
[2021-02-13] MEDS: AMLODIPINE 10MG TABLET PO SCH (10:27)
[2021-02-13] MEDS: LISINOPRIL 20MG TABLET PO SCH ×2 (10:28→22:15)
[2021-02-13] MEDS: ENOXAPARIN 40MG/0.4ML SYR SUBCUT SCH ×2 (11:33→22:15)
[2021-02-13] MEDS ORDERED: NALOXONE HCL 0.4MG/ML VIAL IV PRN (16:15)
[2021-02-13 20:00] VITALS: BP 112/63
[2021-02-14] VITALS: BP 104/65
[2021-02-14 04:00] VITALS: BP 121/77
[2021-02-14 08:00] VITALS: BP 102/57
[2021-02-14] MEDS: LISINOPRIL 20MG TABLET PO SCH ×2 (09:14→21:43)
[2021-02-14] MEDS: FAMOTIDINE 20MG TABLET PO SCH ×2 (09:14→21:44)
[2021-02-14] MEDS: AMLODIPINE 10MG TABLET PO SCH (09:14)
[2021-02-14] MEDS: ENOXAPARIN 40MG/0.4ML SYR SUBCUT SCH ×2 (09:15→21:44)
[2021-02-14] MEDS: KETOROLAC 30MG/ML VIAL IV PRN (10:57)
[2021-02-14 12:00] VITALS: BP 124/83
[2021-02-14 16:00] VITALS: BP 134/81
[2021-02-14] MEDS: HYDROCODONE/ACETAMINOPHEN 10/325MG TABLET PO PRN (17:46)
[2021-02-14 20:00] VITALS: BP 135/90
[2021-02-15] VITALS: BP 112/62
[2021-02-15] MEDS: HYDROCODONE/ACETAMINOPHEN 10/325MG TABLET PO PRN ×3 (00:26→21:20)
[2021-02-15 04:00] VITALS: BP 100/55
[2021-02-15 08:00] VITALS: BP 114/62
[2021-02-15] MEDS: AMLODIPINE 10MG TABLET PO SCH (09:00)
[2021-02-15] MEDS: LISINOPRIL 20MG TABLET PO SCH ×2 (09:37→21:18)
[2021-02-15] MEDS: FAMOTIDINE 20MG TABLET PO SCH ×2 (09:37→21:18)
[2021-02-15] MEDS: ENOXAPARIN 40MG/0.4ML SYR SUBCUT SCH ×2 (09:38→21:17)
[2021-02-15 12:00] VITALS: BP 124/77
[2021-02-15 16:00] VITALS: BP 129/57
[2021-02-15 20:00] VITALS: BP 141/85
[2021-02-16] VITALS: BP 121/54
[2021-02-16 04:00] VITALS: BP 140/84
[2021-02-16] MEDS: HYDROCODONE/ACETAMINOPHEN 10/325MG TABLET PO PRN ×3 (04:23→20:46)
[2021-02-16 08:00] VITALS: BP 144/67
[2021-02-16] MEDS: FAMOTIDINE 20MG TABLET PO SCH ×2 (09:05→20:46)
[2021-02-16] MEDS: AMLODIPINE 10MG TABLET PO SCH (09:05)
[2021-02-16] MEDS: LISINOPRIL 20MG TABLET PO SCH ×2 (09:06→20:58)
[2021-02-16] MEDS: ENOXAPARIN 40MG/0.4ML SYR SUBCUT SCH ×2 (09:06→20:46)
[2021-02-16 12:00] VITALS: BP 114/61
[2021-02-16 16:00] VITALS: BP 136/68
[2021-02-16 20:00] VITALS: BP 138/62
[2021-02-17] VITALS: BP 94/55
[2021-02-17] MEDS: HYDROCODONE/ACETAMINOPHEN 10/325MG TABLET PO PRN ×4 (01:41→21:54)
[2021-02-17 04:00] VITALS: BP 118/68
[2021-02-17 08:00] VITALS: BP 112/59
[2021-02-17] MEDS: AMLODIPINE 10MG TABLET PO SCH (08:49)
[2021-02-17] MEDS: FAMOTIDINE 20MG TABLET PO SCH ×2 (08:51→21:48)
[2021-02-17] MEDS: LISINOPRIL 20MG TABLET PO SCH ×2 (08:51→21:48)
[2021-02-17] MEDS: ENOXAPARIN 40MG/0.4ML SYR SUBCUT SCH ×2 (08:52→21:48)
[2021-02-17 20:00] VITALS: BP 121/79
[2021-02-18] VITALS: BP 117/63
[2021-02-18 04:00] VITALS: BP 129/74
[2021-02-18 07:00] LABS: BASOPHILS % 0.5 % (0.0-2.0); EOSINOPHILS % 2.1 % (0.0-5.0); HEMATOCRIT. 41.2 % (36.0-48.0); HEMOGLOBIN. 13.6 g/dL (12.0-16.0); LYMPHOCYTES % 31.8 % (20.0-50.0); MEAN CORPUSCULAR HEMOGLOBIN 30.6 pg (28.0-32.0); MEAN CORPUSCULAR VOLUME 92.6 fL (81.0-99.0); MEAN PLATELET VOLUME 9.8 fl (7.4-10.4); MONOCYTES % 9.9 % (2.0-8.0); NEUTROPHILS % 55.7 % (40.0-76.0); PLATELET 275 x1000/uL (130-400); RED BLOOD CELL COUNT 4.45 mill/uL (4.2-5.4); RED CELL DISTRIBUTION WIDTH 14.5 % (11.6-14.6)
[2021-02-18 07:09] LABS: CHLORIDE 109 mEq/L (98-107)
[2021-02-18 08:00] VITALS: BP 120/54
[2021-02-18] MEDS: FAMOTIDINE 20MG TABLET PO SCH (09:19)
[2021-02-18] MEDS: AMLODIPINE 10MG TABLET PO SCH (09:20)
[2021-02-18] MEDS: LISINOPRIL 20MG TABLET PO SCH (09:20)
[2021-02-18] MEDS: ENOXAPARIN 40MG/0.4ML SYR SUBCUT SCH (09:20)
[2021-02-18 11:29] VITALS: BP 122/85
== END 2021-02-18 11:41 | disposition home health service (06) | DRG 554 ==
LOC: ER 21:47 → 6EST 02-13 05:08 → ENRESERV 02-13 07:28
PROVIDERS: ADMIT Internal Medicine; ATTEND Internal Medicine
DX: M16.11 Unilateral primary osteoarthritis, right hip (principal); Z68.43 Body mass index [BMI] 50.0-59.9, adult; M25.851 Other specified joint disorders, right hip; E66.01 Morbid (severe) obesity due to excess calories; M25.751 Osteophyte, right hip; I10 Essential (primary) hypertension; Z79.899 Other long term (current) drug therapy; Z98.84 Bariatric surgery status; W19.XXXA Unspecified fall, initial encounter
CPT/HCPCS: 36415; 71045; 73502; 73700; 80048; 80053; 85025; 93306; 93970; 97110; 97162; 97166; 99285; C1893; J1650; J1885; J2270; J2405

== ENCOUNTER 2021-07-16 17:04 | Emergency (ER) | payer MEDICARE, MEDICAID ==
[~2021-07-16] VITALS: Ht 157.5 cm; Wt 127.0 kg
[2021-07-16] MEDS ORDERED: KETOROLAC 60MG/2ML VIAL IM ONE (18:15)
[2021-07-16] MEDS ORDERED: LIDOCAINE 5% PATCH TOP SCH (18:15)
[2021-07-16] MEDS ORDERED: METHOCARBAMOL 750MG TABLET PO SCH (18:15)
[2021-07-16] MEDS ORDERED: HYDROCODONE/ACETAMINOPHEN 5/325MG TABLET PO ONE (18:15)
[2021-07-16] MEDS ORDERED: BACITRACIN/POLYMYXIN B SULFATE OINT 15GM TOP ONE (19:15)
[2021-07-16] MEDS ORDERED: IBUP-2028 MT (20:30)
[2021-07-16] MEDS ORDERED: METH-653 MT (20:30)
[2021-07-16] MEDS ORDERED: TOPUD PO (20:30)
[2021-07-16] MEDS ORDERED: LIDO1ADH23 TP (20:30)
[2021-07-16 20:35] VITALS: BP 121/69
== END 2021-07-16 20:50 | disposition home or self-care (01) ==
LOC: ER 17:04
DX: S80.211A Abrasion, right knee, initial encounter (principal); M25.562 Pain in left knee; I10 Essential (primary) hypertension; W10.8XXA Fall (on) (from) other stairs and steps, initial encounter; Y92.89 Other specified places as the place of occurrence of the external cause; Y93.01 Activity, walking, marching and hiking; M17.11 Unilateral primary osteoarthritis, right knee; M16.7 Other unilateral secondary osteoarthritis of hip; M19.29 Secondary osteoarthritis, other specified site; E66.01 Morbid (severe) obesity due to excess calories; Z68.43 Body mass index [BMI] 50.0-59.9, adult; Z98.84 Bariatric surgery status
CPT/HCPCS: 73502; 73552; 73562; 96372; 99284; J1885